=== PATIENT | female | born 1970 | race Caucasian/White ===

== ENCOUNTER 2023-07-28 10:54 | Day surgery (SDC) | payer MEDICARE, MEDICAID ==
[~2023-07-28] VITALS: Ht 152.4 cm; Wt 62.3 kg
[2023-07-28] MEDS ORDERED: MULT-1085 PO (11:10)
[2023-07-28] MEDS ORDERED: VIT1CAPS46 PO (11:11)
[2023-07-28 11:27] VITALS: BP 137/74; PULSE 81; RESP 10
[2023-07-28] MEDS ORDERED: fentaNYL/PF 50MCG/1 ML 2ML syringe ONE (12:05)
[2023-07-28] MEDS ORDERED: MIDAZolam 1 MG/ML 5ML VIAL ONE (12:06)
[2023-07-28 12:56] VITALS: BP 144/89; PULSE 81; RESP 20; O2SAT 100
[2023-07-28 13:06] VITALS: BP 133/80; PULSE 70; RESP 12; O2SAT 97
[2023-07-28 13:16] VITALS: BP 114/66; PULSE 73; RESP 16; O2SAT 96
[2023-07-28 13:26] VITALS: BP 117/71; PULSE 71; RESP 16; O2SAT 96
== END 2023-07-28 13:40 | disposition home or self-care (01) ==
LOC: GI LAB 10:54
PROVIDERS: ATTEND Internal Medicine Gastroenterology
DX: R19.5 Other fecal abnormalities (principal); D12.0 Benign neoplasm of cecum; D12.2 Benign neoplasm of ascending colon; D12.4 Benign neoplasm of descending colon; D12.7 Benign neoplasm of rectosigmoid junction; K57.30 Diverticulosis of large intestine without perforation or abscess without bleeding
CPT/HCPCS: 45380; 45385; 99152; 99153; J2250; J3010; J7030; Z7512; A4620; C1889

== ENCOUNTER 2025-01-13 14:21 | Emergency (ER) | payer MEDICARE, MEDICAID ==
[~2025-01-13] VITALS: Ht 162.6 cm; Wt 71.0 kg
[~2025-01-13 14:21] MED LIST: MULT-1085 PO; VIT1CAPS46 PO
--- NOTE | 2025-01-13 15:59 | Physician Documentation ---
History of Present Illness ~ Chief Complaint: Abdominal Pain Stated Complaint: ABD PAIN Time Seen by MD: 15:32 Source: patient, EMS, EMS notes reviewed Mode of Arrival: EMS Exam Limitations: no limitations HPI Chief Complaint: Abdominal pain Caveat: None Independent Historians: Paramedics History of Present Illness: Patient is a 54-year-old woman brought in by paramedics from home for upper abdominal pain. Patient describes the pain as a stick. Pain is currently 8/10. Pain began last night some time. She is the tell me exactly when. Patient has had some nausea. No vomiting or diarrhea. Patient denies any blood in the stool or urine. Patient denies any fever. Patient does not recall having some of her pain in the past. No history of abdominal surgeries. Review of systems: All systems were reviewed and are negative except for what is indicated in the history of present illness. Past Medical History: None Past Surgical History: None Social History: No tobacco use, no alcohol use, no drug use Medications: Reviewed as documented Nursing Notes Allergies: Reviewed as documented in Nursing Notes Medication Reconciliation Allergies: Coded Allergies: Sulfa (Sulfonamide Antibiotics) (Unverified Allergy, Severe, 01/13/25) "SEVERE RASH AND SWELLING" Scheduled Furosemide (Lasix), 1 TAB PO MWF Multivitamin (Multi Vitamin Daily), 1 TAB PO DAILY, (Reported) Vit C/E/Zn/Coppr/Lutein/Zeaxan (Preservision Areds 2 Softgel), 1 CAP PO Q12H, (Reported) Past Medical History Past Medical History: No Pertinent History Past Surgical History: no surgical history Alcohol Use: None Review of Systems All Other Systems at this time: Reviewed and Negative ROS Patient denies any other acute symptoms other than above. All other systems are negative Physical Exam Vital Signs: RN Vital Signs have been reviewed: Yes, Temperature: 98.7, Source: Oral, Heart Rate: 77, Respiratory Rate: 16, BP: 136/60, Pulse Oximetry: 90, Weight: 71.000 Oxygen Flow Rate: 0 Pulse Oximetry Reflects: adequate oxygenation Physical Exam General Appearance: MILD DISTRESS HEENT: Normal OP, moist oral mucosa, PERRL, EOMI Neck: supple, normal ROM, trachea midline Pulmonary: No respiratory distress, CTA, BS equal Cardiac: RRR, no murmur, rub or gallop, GI: nondistended, soft, UPPER EPIGASTRIC ABDOMINAL TENDERNESS, NO RIGHT UPPER QUADRANT TENDERNESS, normal bowel sounds, no guarding, no rebound Extremities: normal ROM, no swelling, non-tender Skin: intact, dry, warm, no rashes Neuro: AAOx3, speech is clear, no focal motor weakness Psych: normal affect, good eye contact, no apparent hallucination, normal speech Progress Progress Note Doctor Mary I received this patient in sign-out abdominal pain. Afebrile normal vitals Chest x-ray independently interpreted shows pulmonary edema, cardiomegaly, no consolidation 01/13/2025 independent interpretation of ultrasound shows cholelithiasis without cholecystitis, no free fluid normal right kidney CT abdomen and pelvis showing nonspecific circumferential thickening of the bladder wall I evaluated the patient at bedside she is off of oxygen her O2 user in the mid 90s. She has no crackles no signs of pulmonary edema or lower extremity edema. Her sisters at bedside requesting filling out a do not resuscitate form that the patient would like to fill out and be do not resuscitate. I advised her that her symptoms are likely due to biliary colic and on further discussion she states that she has been having intermittent abdominal pain for years and that she would not want any surgery at this point unless she becomes more symptomatic Results/Orders Results/Orders Completed Orders - VINCENZO HERNANDEZ MD Furosemide 40mg Inj (Lasix Inj) (01/13/25 21:00) Medications Received in ER Medications (Trade) Dose Ordered Sig/Liliana Route PRN Reason Start Time Stop Time Status Last Admin Dose Admin (Lasix inj) 40 mg ONCE ONCE IV 01/13/25 21:00 01/13/25 21:01 DC 01/13/25 21:58 40 MG Vital Signs 01/13/25 01/13/25 01/13/25 01/13/25 14:39 14:44 14:44 16:52 Temp 98.7 Pulse 75 77 Resp 16 16 16 B/P (MAP) 136/60 136/60 (85) Pulse Ox 94 90 O2 Flow Rate 0 0 01/13/25 01/13/25 21:01 22:17 Temp 97.8 Pulse 83 80 Resp 15 B/P (MAP) 101/79 (86) 118/79 Pulse Ox 94 99 O2 Flow Rate 0 Laboratory Tests Test 01/13/25 16:42 White Blood Count 6.9 Red Blood Count 4.41 Hemoglobin 13.4 Hematocrit 40.9 Mean Corpuscular Volume 92.8 Mean Corpuscular Hemoglobin 30.4 Mean Corpuscular Hemoglobin Concent 32.8 L Red Cell Distribution Width 14.9 H Platelet Count 143 Mean Platelet Volume 11.4 H Neutrophils (%) (Auto) 76.7 H Lymphocytes (%) (Auto) 16.1 L Monocytes (%) (Auto) 5.9 Eosinophils (%) (Auto) 0.9 Basophils (%) (Auto) 0.4 Neutrophils # (Auto) 5.3 Lymphocytes # (Auto) 1.1 Monocytes # (Auto) 0.4 Eosinophils # (Auto) 0.1 Basophils # (Auto) 0.0 CBC Comment Prothrombin Time 10.5 INR International Normalized Ratio 1.0 Activated Partial Thromboplast Time 26 Coagulation Comments Sodium Level 149 H Potassium Level 4.5 Chloride Level 112 H Carbon Dioxide Level 30.2 Anion Gap 7 L Blood Urea Nitrogen 18 Creatinine 0.64 Estimated GFR/1.73 m2 > 90 BUN/Creatinine Ratio 28.1 H Glucose Level 168 H Calcium Level 9.1 Total Bilirubin 0.5 Aspartate Amino Transf (AST/SGOT) 95 H Alanine Aminotransferase (ALT/SGPT) 76 Alkaline Phosphatase 306 H Troponin I High Sensitivity 8 Pro-B-Type Natriuretic Peptide 92 Total Protein 5.8 L Albumin 3.2 L Globulin 2.6 L Albumin/Globulin Ratio 1.2 Lipase 58 Chemistry Comments Medical Decision Making Findings Differential diagnosis includes but is not limited to: Acute cholecystitis, cholelithiasis, choledocholithiasis, gastritis, duodenitis, pancreatitis EKG independent interpretation: Chest x-ray, single view, indication: Abdominal pain Independent interpretation: No megaly, pulmonary vascular congestion CTA abdomen and pelvis, indication: Abdominal pain Impression: Laboratory data independent interpretation: CBC: Unremarkable CMP: Urinalysis: 1rst troponin: P BNP: Emergency department course/medical decision-making: Patient is a 54-year-old woman brought in by paramedics for epigastric abdominal pain that began last night. Patient denies any medical problems. However her chest x-ray shows cardiomegaly and pulmonary vascular congestion. Additional lab work is pending. Care the patient will be transferred to Dr. Hernandez. Patient was given 1 L normal saline, morphine 4 mg IV and Zofran 4 mg IV. Consultation/communications: Departure Disposition: 01 HOME / SELF CARE / HOMELESS Impression: Primary Impression: Abdominal pain of unknown cause Additional Impression: Biliary colic Additional Instructions: Please follow up with her primary care physician. If she has any deterioration in her breathing or mental status please return to the emergency department Referrals: NO PRIMARY CARE PROVIDER (PCP) Prescriptions Furosemide (LASIX) 20 Mg Tablet 1 TAB PO MWF for 14 Days, #14 TAB 0 Refills Prov: VINCENZO HERNANDEZ MD 01/13/25 Signature Scribe Signature: No scribe Attestation: No scribe EDYTA MAIN MD January 13, 2025 15:59 VINCENZO HERNANDEZ MD January 13, 2025 20:38
[2025-01-13] MEDS: ondansetron/PF 4mg/2ml inj IV ONE (16:51)
[2025-01-13] MEDS: normal saline 1000ML IV soln IVB ONE (16:51)
--- NOTE | 2025-01-13 16:51 | RADIOLOGY REPORT ---
CHEST RADIOGRAPH Indication: abdominal pain Technique: Single frontal view of the chest was obtained COMPARISON: None FINDINGS: Lines and Tubes: None Lungs: Increased interstitial prominence Pleura: No effusion. No pneumothorax. Cardiomediastinal contours: Cardiomegaly Bones: Unremarkable IMPRESSION: Pulmonary vascular congestion
[2025-01-13] MEDS: morphine 4 MG/ML inj SYRINge IV PRN (16:52)
[2025-01-13 17:00] LABS: BASOPHILS % (AUTO) 0.4 % (0-1); EOSINOPHILS # (AUTO) 0.1 X10'3 (0-0.9); EOSINOPHILS % (AUTO) 0.9 % (0-6); HEMATOCRIT 40.9 % (35.0-45.0); HEMOGLOBIN 13.4 g/dl (12.0-16.0); LIPASE 58 U/L (16-77); LYMPHOCYTES # (AUTO) 1.1 X10'3 (1.1-4.8); LYMPHOCYTES % (AUTO) 16.1 % (21-51); MEAN CORPUSCULAR HEMOGLOBIN 30.4 PG (27.0-31.0); MEAN CORPUSCULAR HGB CONC 32.8 g/dL (33.0-36.5); MEAN CORPUSCULAR VOLUME 92.8 FL (78-98); MEAN PLATELET VOLUME 11.4 FL (7.4-10.4); MONOCYTES # (AUTO) 0.4 X10'3 (0-0.9); MONOCYTES % (AUTO) 5.9 % (2-12); NEUTROPHILS # (AUTO) 5.3 X10'3 (1.8-7.7); NEUTROPHILS % (AUTO) 76.7 % (42-75); PLATELET COUNT 143 X10'3 (140-440); RED BLOOD COUNT 4.41 X10'6 (4.20-5.60); RED CELL DISTRIBUTION WIDTH 14.9 % (11.5-14.5); WHITE BLOOD COUNT 6.9 X10'3 (4.5-11.0)
--- NOTE | 2025-01-13 17:36 | RADIOLOGY REPORT ---
CLINICAL INFORMATION: 54 years old, Female; Abdominal Pain. TECHNIQUE: Axial CT images of the abdomen and pelvis were obtained without IV contrast. Coronal and s agittal reformatted images were obtained, reviewed, and stored. Evaluation of the parenchymal organs is limited without IV contrast. Evaluation of the bowel and mesentery is limited without oral contras t. All CT scans at this medical facility are performed using dose modulation techniques as appropriat e to a performed exam including the following: Automated exposure control was utilized; adjustment of the MA and/or KV according to patient size; and use of iterative reconstruction technique. CTDIvol = 13.89 mGy DLP = 776.84 mGy-cm COMPARISON: None FINDINGS: Lung bases: Atelectasis in the lung bases. Liver: Grossly unremarkable in its noncontrast enhanced appearance. No abnormal density or focal lesi on identified. Biliary: Calcified gallstones in the gallbladder, with the largest measuring up to 2.7 cm. Spleen: Unremarkable. Pancreas: Grossly unremarkable in its noncontrast enhanced appearance. Adrenal glands: Unremarkable. No mass. Kidneys: No hydronephrosis. No renal or ureteral calculi. Aorta/Vascular: No aneurysm or significant calcification. Retroperitoneum: No mass or lymphadenopathy. Bowel/mesentery: No small bowel obstruction. No free air or free fluid. Appendix is visualized and ap pears unremarkable. Scattered small colonic diverticula without adjacent inflammatory changes to sug gest diverticulitis. Pelvic organs: Grossly unremarkable. Bladder: Mild circumferential thickening of the bladder wall. Abdominal wall: Marked fatty atrophy of the rectus abdominis muscles. Bones: No acute fracture or suspicious intraosseous lesion. IMPRESSION: 1. Cholelithiasis. 2. Nonspecific circumferential thickening of the bladder wall. Correlate clinically to exclude cystit is. 3. Additional nonacute findings as described above.
--- NOTE | 2025-01-13 18:32 | ELECTROCARDIOGRAPH REPORT ---
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 Chapito Dueñas Measurements Intervals [place] Rate: 69 P: -18 DE: 219 QRS: -60 QRSD: 105 T: 21 QT: 389 QTc: 417 Interpretive Statements Sinus rhythm Prolonged DE interval LAD, consider left anterior fascicular block Abnormal R-wave progression, late transition Borderline T abnormalities, anterior leads Electronically Signed On 01-14-2025 13:04:[address] Chapiot Dueñas Please click the below link to view image of tracing.
[2025-01-13 18:54] LABS: APTT 26 SECONDS (22-32); PROTHROMBIN TIME 10.5 SECONDS (9.0-12.0)
[2025-01-13 18:56] LABS: ALANINE AMINOTRANSFERASE 76 U/L (12-78); ALBUMIN 3.2 G/DL (3.4-5.0); ALBUMIN/GLOBULIN RATIO 1.2 (1.1-1.5); ALKALINE PHOSPHATASE 306 IU/L (46-116); ANION GAP 7 (8-16); ASPARTATE AMINO TRANSFERASE 95 U/L (10-37); BILIRUBIN,TOTAL 0.5 MG/DL (0.1-1.0); BLOOD UREA NITROGEN 18 MG/DL (7-18); BUN/CREATININE RATIO 28.1 (10.0-20.0); CALCIUM 9.1 MG/DL (8.5-10.1); CHLORIDE 112 MMOL/L (99-107); CREATININE 0.64 MG/DL (0.40-0.90); GLUCOSE 168 MG/DL (70-104); POTASSIUM 4.5 MMOL/L (3.5-5.1); SODIUM 149 MMOL/L (135-145); TOTAL CARBON DIOXIDE 30.2 MMOL/L (24-32); TOTAL PROTEIN 5.8 G/DL (6.4-8.2); eCRCL 87 ML/MIN; eGFR > 90 ML/MIN
[2025-01-13 19:03] LABS: PRO BRAIN NATRIURETIC PEPTIDE 92 PG/ML (0-125)
--- NOTE | 2025-01-13 19:26 | RADIOLOGY REPORT ---
Clinical History Abdominal Pain R/O Gallbladder Comparison None Without Contrast IDALIA SÁNCHEZ, [id number] Technique: Limited upper abdominal quadrant ultrasound was performed. Interpretation of the ultrasound exam is solely based on the sonographic images submitted by the on-site gas processing plant operator. The radiologist was not present on site and did not scan the patient to confirm findings. Findings: Liver: Diffuse increased hepatic echogenicity. The liver measures 15.4 cm. Hepatopedal portal vein flow. The portal vein measures 7 mm Gallbladder: Shadowing gallstones. Normal gallbladder wall thickness measuring 1.6 mm. No perichole cystic fluid. Negative sono Luz's sign CBD: 2.4 mm Pancreas: The pancreatic tail and part of the head are obscured by bowel gas. Diffuse increased echo genicity of the imaged parts of the pancreas indicating fatty infiltration Right kidney: It measures 10 x 4.7 x 5.5 cm. No shadowing calculi. No hydronephrosis Impression: Gallstones with no sonographic evidence of acute cholecystitis. Hepatic fatty infiltration This report was electronically signed by Jose Carlos Bedolla MD on 01/13/2025 7:22:34 PM.
[2025-01-13 21:01] VITALS: RESP 15
[2025-01-13] MEDS ORDERED: FURO-150 PO (21:04)
[2025-01-13] MEDS: furosemide 40mg/4ml inj IV ONE (21:58)
[2025-01-13 22:17] VITALS: BP 118/79; PULSE 80; TEMP 97.8; O2SAT 99
== END 2025-01-13 22:20 | disposition home or self-care (01) ==
LOC: ER 14:21
DX: K80.50 Calculus of bile duct without cholangitis or cholecystitis without obstruction (principal); I16.1 Hypertensive emergency; Z88.2 Allergy status to sulfonamides; Z79.899 Other long term (current) drug therapy
CPT/HCPCS: 36415; 71045; 74176; 76700; 80053; 83690; 83880; 84484; 85025; 85610; 85730; 93005; 96361; 96374; 96375; 99285; A4615; J1940; J2270; J2405; J7030